=== PATIENT | female | born 1950 | race Caucasian/White ===

== ENCOUNTER 2017-05-21 18:10 | Observation (INO) | END 2017-05-22 15:00 | disposition home or self-care (01) ==

== ENCOUNTER 2018-08-06 11:39 | Emergency (ER) | payer OTHER, MEDICARE ==
[~2018-08-06] VITALS: Ht 165.1 cm; Wt 76.0 kg
[~2018-08-06 11:39] MED LIST: ARIP5TAB14 PO; BUDE6HFA INHALATION; BUPR200T PO; ESTR1TAB PO; FLUO40CA PO; IMMU10VI10 SQ; LEVO125T7 PO; MELO15TA30 PO; MIRA50TA PO; MONT10TA24 PO; PRED20TA PO; PREG50CA PO; PROP20TA4 PO; ZOLP5TAB7 PO
[2018-08-06 11:44] VITALS: Ht 165.1 cm; Wt 76.0 kg
[2018-08-06] MEDS ORDERED: LEVO125T7 PO (19:55)
[2018-08-06] MEDS ORDERED: PREG50CA PO (19:57)
[2018-08-06] MEDS ORDERED: ESTR1TAB PO (19:57)
[2018-08-06] MEDS ORDERED: MELO15TA30 PO (19:57)
[2018-08-06] MEDS ORDERED: MIRA50TA PO (19:58)
[2018-08-06] MEDS ORDERED: BUPR200T PO (19:58)
[2018-08-06] MEDS ORDERED: BUDE6HFA INHALATION (19:59)
[2018-08-06] MEDS ORDERED: MONT10TA24 PO (19:59)
[2018-08-06] MEDS ORDERED: PROP20TA4 PO (20:00)
[2018-08-06] MEDS ORDERED: ZOLP5TAB7 PO (20:00)
[2018-08-06] MEDS ORDERED: FLUO40CA PO (20:00)
[2018-08-06] MEDS ORDERED: ARIP10TA12 PO (20:01)
[2018-08-06] MEDS ORDERED: SOD CHLORIDE 0.9% 100 ML ONE (20:13)
[2018-08-06] MEDS ORDERED: IOHEXOL 100 ML ONE (20:13)
[2018-08-06 21:00] VITALS: BP 134/79; PULSE 74; RESP 18
--- NOTE | 2018-08-06 22:56 | ERD ---
ER Documentation Chief Complaint Chief Complaint Pt presents with B leg weakness and unsteady gait since 929. Pt back brace HPI This is a 67-year-old female, with a history of anxiety who presents with bilateral leg weakness, an episode of brief blurry vision, and diffuse tingling. The patient has a history of anxiety, and the whole episode felt like a panic attack, however she has a family member who had a recent TIA, and this made her worried, about strokes running in the family. Currently she is asymptomatic, and denies weakness, she has no chest pain or shortness of breath. ROS All systems reviewed and are negative except as per history of present illness. Medications Home Meds Reported Medications Aripiprazole* (Abilify*) 10 Mg Tablet, 10 MG PO NEEDED, #30 TAB 08/06/18 Propranolol Hcl* (Propranolol Hcl*) 20 Mg Tablet, 20 MG PO DAILY, TAB 08/06/18 Fluoxetine Hcl* (Fluoxetine Hcl*) 40 Mg Capsule, 40 MG PO BID, CAP 08/06/18 Zolpidem Tartrate* (Zolpidem Tartrate*) 5 Mg Tablet, 5 MG PO QHS PRN for INSOMNIA, #30 TAB 08/06/18 Budesonide-Formoterol Fumarate* (Symbicort*) 160-4.5 Hfa.aer.ad, 2 PUFF INHALATION BID, #1 EACH 08/06/18 Montelukast Sodium* (Montelukast Sodium*) 10 Mg Tablet, 10 MG PO QHS, #30 TAB 08/06/18 Mirabegron (Myrbetriq) 50 Mg Tab.er.24h, 50 MG PO DAILY, TAB 08/06/18 Bupropion Hcl* (Bupropion Hcl SR*) 200 Mg Tablet.sa, 200 MG PO BID, TAB.SA 08/06/18 Pregabalin* (Lyrica*) 50 Mg Capsule, 50 MG PO BID, CAP 08/06/18 Meloxicam* (Mobic*) 15 Mg Tablet, 15 MG PO DAILY, #30 TAB 08/06/18 Estradiol/Norethindrone Acet (Estradiol-Noreth 1-0.5 mg Tab) 1 Each Tablet, 1 EACH PO DAILY, TAB 08/06/18 Levothyroxine Sodium* (Levothyroxine Sodium*) 125 Mcg Tablet, 125 MCG PO BEFORE BREAKFAST, #30 TAB 08/06/18 Discontinued Reported Medications Immune Globulin,Gamma(IgG) (Hizentra) 10 Gm/50 Ml Vial, 45 ML SQ Q7D, VIAL 05/21/17 Mirabegron (Myrbetriq) 50 Mg Tab.er.24h, 50 MG PO DAILY, TAB 05/21/17 Budesonide-Formoterol Fumarate* (Symbicort*) 160-4.5 Hfa.aer.ad, 2 PUFF INHALATION BID, #1 EACH 05/21/17 Pregabalin* (Lyrica*) 50 Mg Capsule, 50 MG PO TID, CAP 05/21/17 Aripiprazole* (Abilify*) 5 Mg Tab, 5 MG PO DAILY, #30 TAB 05/21/17 Bupropion Hcl* (Bupropion Hcl SR*) 200 Mg Tablet.sa, 200 MG PO BID, TAB.SA 05/21/17 Fluoxetine Hcl* (Fluoxetine Hcl*) 40 Mg Capsule, 80 MG PO DAILY, CAP 05/21/17 Estradiol/Norethindrone Acet (Estradiol-Noreth 1-0.5 mg Tab) 1 Each Tablet, 1 EACH PO DAILY, TAB 05/21/17 Montelukast Sodium* (Montelukast Sodium*) 10 Mg Tablet, 10 MG PO QHS, #30 TAB 05/21/17 Meloxicam* (Mobic*) 15 Mg Tablet, 15 MG PO DAILY, #30 TAB 05/21/17 Zolpidem Tartrate* (Zolpidem Tartrate*) 5 Mg Tablet, 5 MG PO QHS PRN for INSOMNIA, #30 TAB 05/21/17 Prednisone* (Prednisone*) 20 Mg Tab, 20 MG PO DAILY, TAB 05/21/17 Levothyroxine Sodium* (Levothyroxine Sodium*) 125 Mcg Tablet, 125 MCG PO BEFORE BREAKFAST, #30 TAB 05/21/17 Propranolol Hcl* (Propranolol Hcl*) 20 Mg Tablet, 20 MG PO DAILY, TAB 05/21/17 Allergies Allergies: Coded Allergies: morphine (Verified Allergy, Intermediate, MENTAL STATUS CHANGE, 08/06/18) Uncoded Allergies: TAPE (Allergy, Intermediate, BLISTER, 04/18/10) PMhx/Soc History of Surgery: Yes (Lumbar fusion, toe surgery) Anesthesia Reaction: No Hx Neurological Disorder: No Hx Respiratory Disorders: Yes ("Aerestitial Pneumonitis", PNA) Hx Cardiac Disorders: No Hx Psychiatric Problems: No Hx Miscellaneous Medical Probl: No Hx Alcohol Use: No Hx Substance Use: No Hx Tobacco Use: No Smoking Status: Never smoker Physical Exam Vitals Vital Signs Date Temp Pulse Resp B/P (MAP) Pulse Ox O2 O2 Flow FiO2 Time Delivery Rate 08/06/18 74 18 134/79 100 21:00 (97) 08/06/18 76 17 132/84 97 20:00 (100) 08/06/18 99.5 78 18 186/103 97 11:44 (130) Physical Exam Const: No acute distress Head: Atraumatic Eyes: Normal Conjunctiva ENT: Normal External Ears, Nose and Mouth. Neck: Full range of motion. No meningismus. Resp: Clear to auscultation bilaterally Cardio: Regular rate and rhythm, no murmurs Abd: Soft, non tender, non distended. Normal bowel sounds Skin: No petechiae or rashes Back: No midline or flank tenderness Ext: No cyanosis, or edema Neur: Neuro: M/S: Alert and oriented Face: EOMI, face and pharynx with normal sensation and function Motor: Normal strength throughout Sensation: Normal sensation throughout Speech: Normal Cerebel: Normal coordination Normal gait Normal finger to nose DTR: 2+ and symmetric upper/lower extremities Psych: Normal Mood and Affect Result Diagram: 08/06/18193608/06/181936 Results 24 hrs Laboratory Tests Test 08/06/18 11:58 08/06/18 19:37 08/06/18 19:56 Bedside Glucose 96 mg/dL 114 mg/dL White Blood Count 7.3 10^3/ul Red Blood Count 4.51 10^6/ul Hemoglobin 12.2 g/dl Hematocrit 37.7 % Mean Corpuscular Volume 83.6 fl Mean Corpuscular Hemoglobin 27.1 pg Mean Corpuscular Hemoglobin Concent 32.4 g/dl Red Cell Distribution Width 14.3 % Platelet Count 422 10^3/UL Mean Platelet Volume 8.9 fl Immature Granulocytes % 0.500 % Neutrophils % 64.3 % Lymphocytes % 21.7 % Monocytes % 8.9 % Eosinophils % 3.6 % Basophils % 1.0 % Nucleated Red Blood Cells % 0.0 /100WBC Immature Granulocytes # 0.040 10^3/ul Neutrophils # 4.7 10^3/ul Lymphocytes # 1.6 10^3/ul Monocytes # 0.7 10^3/ul Eosinophils # 0.3 10^3/ul Basophils # 0.1 10^3/ul Nucleated Red Blood Cells # 0.0 10^3/ul Prothrombin Time 12.8 Sec Prothrombin Time Ratio 1.0 INR International Normalized Ratio 0.95 Activated Partial Thromboplast Time 28.7 Sec Urine Color YELLOW Urine Clarity SLIGHTLY CLOUDY Urine pH 7.0 Urine Specific [place] 1.005 Urine Ketones NEGATIVE mg/dL Urine Nitrite NEGATIVE mg/dL Urine Bilirubin NEGATIVE mg/dL Urine Urobilinogen NEGATIVE mg/dL Urine Leukocyte Esterase NEGATIVE Sandhya/ul Urine Microscopic RBC 2 /HPF Urine Microscopic WBC 2 /HPF Urine Squamous Epithelial Cells FEW /HPF Urine Bacteria FEW /HPF Urine Hemoglobin NEGATIVE mg/dL Urine Glucose NEGATIVE mg/dL Urine Total Protein NEGATIVE mg/dl Sodium Level 129 mmol/L Potassium Level 3.7 mmol/L Chloride Level 94 mmol/L Carbon Dioxide Level 27 mmol/L Anion Gap 8 Blood Urea Nitrogen 9 mg/dl Creatinine 0.62 mg/dl Est Glomerular Filtrat Rate mL/min > 60 mL/min Glucose Level 99 mg/dl Hemoglobin A1c 5.4 % Calcium Level 9.2 mg/dl Total Bilirubin 0.2 mg/dl Direct Bilirubin 0.00 mg/dl Indirect Bilirubin 0.2 mg/dl Aspartate Amino Transf (AST/SGOT) 37 IU/L Alanine Aminotransferase (ALT/SGPT) 26 IU/L Alkaline Phosphatase 61 IU/L Troponin I < 0.012 ng/ml Total Protein 7.3 g/dl Albumin 4.3 g/dl Globulin 3.00 g/dl Albumin/Globulin Ratio 1.43 Triglycerides Level 60 mg/dl Cholesterol Level 173 mg/dl LDL Cholesterol, Calculated 98 mg/dl HDL Cholesterol 63 mg/dl Cholesterol/HDL Ratio 2.7 RATIO Urine Opiates Screen Negative Urine Barbiturates Negative Urine Amphetamines Screen Negative Urine Benzodiazepines Screen Negative Urine Cocaine Screen Negative Urine Cannabinoids Negative Current Medications Medications Dose Sig/Gregoria Start Time Status Last (Trade) Ordered Route PRN Stop Time Admin Dose Reason Admin IV Flush 10 ml STK-MED 08/06/18 DC (NS 10 ml) ONCE .ROUTE 20:13 08/06/18 20:14 Sodium 100 ml @ ud STK-MED 08/06/18 DC Chloride ONCE .ROUTE 20:13 08/06/18 20:14 Iohexol 100 ml @ STK-MED 08/06/18 DC ONCE .ROUTE 20:13 08/06/18 20:14 Procedures/MDM This is a [age]-year-old female presents for evaluation of weakness, as well as vague neurologic symptoms, in the setting of a panic attack. Given her age, I cannot completely exclude TIA, although her symptomatology does not fit with any specific vascular lesion. Patient was evaluated from a neurologic standpoint with a CT brain, and CT angiogram to evaluate for any cervical vessel stenosis, imaging was negative and her labs are overall unremarkable. I discussed findings the patient, and while I cannot completely rule out a TIA, at this point suspicion is low, and this we made shared decision making, to follow-up further work-up as an outpatient, advised patient to take aspirin daily, patient agreed to this, at discharge she was in no distress. EKG: Rate/Rhythm: Normal Sinus Rhythm QRS, ST, T-waves: No changes consistent w/ acute ischemia Impression: No evidence of ischemia or arrhythmia Departure Diagnosis: Primary Impression: Acute weakness Condition: Stable MICHAELA DOHERTY MD August 06, 2018 22:56
== END 2018-08-06 23:08 | disposition home or self-care (01) ==
LOC: E/R 11:39
DX: R53.1 Weakness (principal); R41.82 Altered mental status, unspecified
CPT/HCPCS: 36415; 70450; 70496; 70498; 71045; 80053; 80061; 80307; 81001; 81003; 82962; 83036; 84484; 85025; 85610; 85730; 93005; 99285; Q9967

== ENCOUNTER 2018-09-07 14:55 | Emergency (ER) | payer OTHER, MEDICARE ==
[~2018-09-07] VITALS: Ht 170.2 cm; Wt 70.0 kg
[~2018-09-07 14:55] MED LIST changes: +ARIP10TA12 PO; -ARIP5TAB14 PO; -IMMU10VI10 SQ; -PRED20TA PO
[2018-09-07 15:09] VITALS: Ht 170.2 cm; Wt 70.0 kg
--- NOTE | 2018-09-07 15:10 | ERD ---
ER Documentation Chief Complaint Chief Complaint bl arm numbness HPI The patient is a 68-year-old female, presenting to the ER because of bilateral arm numbness, chest pressure, difficulty focusing while she was paying her bill around 2 PM. She had similar symptoms previously from panic attack, she then took Xanax prior to calling 911. She felt much better at this time she believes it was a panic attack. She was seen in the [facility] on August 06, 2018, had Brain CT and Brain CTA that were unremarkable. She was admitted to [facility] and discharged 2 days ago for TIA. She had a brain CT, brain MRI that was unremarkable. He is under a lot of stress and is afraid that she may have another TIA Past medical history: Dyslipidemia, anxiety, panic disorder, hypothyroidism Past surgical history: Back surgery ROS All systems reviewed and are negative except as per history of present illness. Medications Home Meds Reported Medications Aspirin* (Aspirin* EC) 81 Mg Tablet.dr, 81 MG PO DAILY, TAB 09/07/18 Atorvastatin* (Atorvastatin*) 80 Mg Tablet, 80 MG PO QHS, #30 TAB 09/07/18 Aripiprazole* (Abilify*) 10 Mg Tablet, 10 MG PO NEEDED, #30 TAB 08/06/18 Propranolol Hcl* (Propranolol Hcl*) 20 Mg Tablet, 20 MG PO DAILY, TAB 08/06/18 Fluoxetine Hcl* (Fluoxetine Hcl*) 40 Mg Capsule, 40 MG PO BID, CAP 08/06/18 Zolpidem Tartrate* (Zolpidem Tartrate*) 5 Mg Tablet, 5 MG PO QHS PRN for INSOMNIA, #30 TAB 08/06/18 Budesonide-Formoterol Fumarate* (Symbicort*) 160-4.5 Hfa.aer.ad, 2 PUFF INHALATION BID, #1 EACH 08/06/18 Montelukast Sodium* (Montelukast Sodium*) 10 Mg Tablet, 10 MG PO QHS, #30 TAB 08/06/18 Mirabegron (Myrbetriq) 50 Mg Tab.er.24h, 50 MG PO DAILY, TAB 08/06/18 Bupropion Hcl* (Bupropion Hcl SR*) 200 Mg Tablet.sa, 200 MG PO BID, TAB.SA 08/06/18 Pregabalin* (Lyrica*) 50 Mg Capsule, 50 MG PO BID, CAP 08/06/18 Meloxicam* (Mobic*) 15 Mg Tablet, 15 MG PO DAILY, #30 TAB 08/06/18 Estradiol/Norethindrone Acet (Estradiol-Noreth 1-0.5 mg Tab) 1 Each Tablet, 1 EACH PO DAILY, TAB 08/06/18 Levothyroxine Sodium* (Levothyroxine Sodium*) 125 Mcg Tablet, 125 MCG PO BEFORE BREAKFAST, #30 TAB 08/06/18 Allergies Allergies: Coded Allergies: morphine (Verified Allergy, Intermediate, MENTAL STATUS CHANGE, 09/07/18) Uncoded Allergies: TAPE (Allergy, Intermediate, BLISTER, 04/18/10) PMhx/Soc History of Surgery: Yes (Lumbar fusion, toe surgery) Anesthesia Reaction: No Hx Neurological Disorder: No Hx Respiratory Disorders: Yes ("Aerestitial Pneumonitis", PNA) Hx Cardiac Disorders: No Hx Psychiatric Problems: No Hx Miscellaneous Medical Probl: No Hx Alcohol Use: No Hx Substance Use: No Hx Tobacco Use: No Physical Exam Vitals Vital Signs Date Temp Pulse Resp B/P (MAP) Pulse Ox O2 O2 Flow FiO2 Time Delivery Rate 09/07/18 98.5 75 15 144/82 100 Room Air 16:49 (102) 09/07/18 98.5 88 15 151/94 100 Room Air 15:22 (113) 09/07/18 99.0 91 18 174/84 98 15:09 (114) Physical Exam Const: No acute distress. Head: Atraumatic. Eyes: Normal Conjunctiva. ENT: Normal External Ears, Nose and Mouth. Neck: Full range of motion. No meningismus. Resp: Clear to auscultation bilaterally. Cardio: Regular rate and rhythm. Abd: Soft, non distended, normal bowel sounds, non tender. Skin: No petechiae or rashes. Back: No midline or flank tenderness. Ext: No cyanosis, or edema. Neur: Awake and alert. No focal deficit Psych: Anxious Result Diagram: 09/07/18 1515 09/07/18 1515 Results 24 hrs Laboratory Tests Test 09/07/18 15:15 09/07/18 15:44 White Blood Count 8.5 10^3/ul Red Blood Count 4.07 10^6/ul Hemoglobin 11.3 g/dl Hematocrit 34.4 % Mean Corpuscular Volume 84.5 fl Mean Corpuscular Hemoglobin 27.8 pg Mean Corpuscular Hemoglobin Concent 32.8 g/dl Red Cell Distribution Width 14.3 % Platelet Count 299 10^3/UL Mean Platelet Volume 9.4 fl Immature Granulocytes % 0.100 % Neutrophils % 75.7 % Lymphocytes % 15.0 % Monocytes % 6.3 % Eosinophils % 2.4 % Basophils % 0.5 % Nucleated Red Blood Cells % 0.0 /100WBC Immature Granulocytes # 0.010 10^3/ul Neutrophils # 6.4 10^3/ul Lymphocytes # 1.3 10^3/ul Monocytes # 0.5 10^3/ul Eosinophils # 0.2 10^3/ul Basophils # 0.0 10^3/ul Nucleated Red Blood Cells # 0.0 10^3/ul Prothrombin Time 13.1 Sec Prothrombin Time Ratio 1.0 INR International Normalized Ratio 0.98 Activated Partial Thromboplast Time 27.9 Sec Sodium Level 128 mmol/L Potassium Level 3.6 mmol/L Chloride Level 96 mmol/L Carbon Dioxide Level 23 mmol/L Anion Gap 9 Blood Urea Nitrogen 13 mg/dl Creatinine 0.65 mg/dl Est Glomerular Filtrat Rate mL/min > 60 mL/min Glucose Level 129 mg/dl Calcium Level 8.9 mg/dl Bedside Glucose 129 mg/dL Procedures/[place] [id number] Radiology Main Line: [phone] DIAGNOSTIC IMAGING REPORT Patient: JUAN M GRAYSON : 1950 Age: 68 Sex: F [id number]: 09/07[facility]18 [facility] Ordering MD: PHAM KING MD Location: E/R Room/Bed: PROCEDURE: CT Brain without contrast. CLINICAL INDICATION: Headache TECHNIQUE: A CT of the brain was performed on a multidetector CT scanner utilizing axial imaging from the skull base through the vertex without IV contrast. Multiplanar reformatted images were made. Images were reviewed on a PACS workstation. The CTDIvol is 39 mGy and the DLP is 634 mGycm. DICOM images are available. One or more of the following dose reduction techniques were utilized: 1.) Automated exposure control 2.) Adjustment of the mA +/- kV according to patient's size 3.) Use of iterative reconstruction technique. COMPARISON: Head CT August 06, 2018 FINDINGS: There is no intracranial hemorrhage, mass effect, or midline shift. No extra- axial fluid collection is seen. There is mild to moderate age appropriate diffuse cerebral volume loss with sulcal and ventricular dilatation. Mild periventricular white matter disease is seen in both cerebral hemispheres.. The edwards white matter differentiation appears well-preserved. The visualized paranasal sinuses and osseous structures are grossly unremarkable. IMPRESSION: 1. No evidence of acute intracranial pathology. 2. Age-appropriate atrophy with white matter disease compatible with chronic small vessel ischemia. No change. .Wilner Diaz MD, MD Date Time Electronically viewed and signed by .Wilner Diaz MD, MD on 09/07/2018 1 6:25 .A/ CC: PHAM KING MD [phone] MEDICAL MAKING DECISION: The patient is a 68-year-old female, presenting with probable acute panic attack, she remained well the emergency department and is stable for outpatient follow-up The differential diagnoses considered include but are not limited to panic attack, anxiety attack, stress, TIA Departure Diagnosis: Primary Impression: Panic attack Additional Impression: Anemia Condition: Good Comments The patient's blood pressure was elevated (>120/80) but appears stable without evidence of hypertension emergency or urgency. The patient was counseled about the risks of hypertension and urged to pursue outpatient monitoring and therapy within a week with their primary care physician. I discussed the findings with the patient. I advised the patient to follow-up with the primary physician in about 2-3 days, sooner if needed and return if any concern. Disclaimer: Inadvertent spelling and grammatical errors are likely due to EHR/dictation software use and do not reflect on the overall quality of patient care. Also, please note that the electronic time recorded on this note does not necessarily reflect the actual time of the patient encounter. PHAM KING MD Sep 07, 2018 15:10
[2018-09-07] MEDS ORDERED: ATOR-2 PO (15:55)
[2018-09-07] MEDS ORDERED: ASPI-817 PO (15:56)
[2018-09-07 17:33] VITALS: BP 143/77; PULSE 71; RESP 12
== END 2018-09-07 17:42 | disposition home or self-care (01) ==
LOC: E/R 14:55
DX: F41.0 Panic disorder [episodic paroxysmal anxiety] (principal); D64.9 Anemia, unspecified; R07.89 Other chest pain; E03.9 Hypothyroidism, unspecified; Z79.82 Long term (current) use of aspirin
CPT/HCPCS: 36415; 70450; 80048; 82962; 85025; 85610; 85730